=== PATIENT | female | born 1950 | race Native Hawaiian/Other Pacific Islander ===

== ENCOUNTER 2021-05-23 09:22 | Outpatient (CLI) | payer BC ==
[2021-05-23 10:00] LABS: PLATELET COUNT 282 K/uL (152-353)
[2021-05-23 10:22] LABS: POTASSIUM 3.7 mmol/L (3.6-5.2)
== END 2021-05-23 20:35 | disposition home or self-care (01) ==
LOC: LABW 09:22
PROVIDERS: ATTEND Internal Medicine
DX: N39.0 Urinary tract infection, site not specified (principal); E11.22 Type 2 diabetes mellitus with diabetic chronic kidney disease; I10 Essential (primary) hypertension
CPT/HCPCS: 36415; 80053; 81000; 82024; 82043; 82088; 82533; 82570; 83036; 83735; 83835; 84100; 84155; 84244; 84436; 84439; 84443; 85027; 87086; 87088

== ENCOUNTER 2021-05-29 14:33 | Outpatient (CLI) | payer BC | END 2021-05-29 22:45 | disposition home or self-care (01) | LOC: LAB 14:33 | PROVIDERS: ATTEND Internal Medicine | DX: N39.0 Urinary tract infection, site not specified (principal) | CPT/HCPCS: 81000 ==

== ENCOUNTER 2022-04-20 09:46 | Outpatient (CLI) | payer BC ==
[2022-04-20 10:23] LABS: PLATELET COUNT 305 K/uL (152-353)
[2022-04-20 10:36] LABS: POTASSIUM 3.7 mmol/L (3.6-5.2)
== END 2022-04-20 19:21 | disposition home or self-care (01) ==
LOC: LABW 09:46
PROVIDERS: ATTEND Internal Medicine
DX: E11.22 Type 2 diabetes mellitus with diabetic chronic kidney disease (principal); N18.9 Chronic kidney disease, unspecified
CPT/HCPCS: 36415; 80053; 81002; 82043; 82570; 83036; 83735; 84100; 84156; 84439; 84443; 85027

== ENCOUNTER 2023-01-07 09:25 | Outpatient (CLI) | payer BC ==
[2023-01-07 10:00] LABS: PLATELET COUNT 299 K/uL (152-353)
[2023-01-07 10:29] LABS: POTASSIUM 3.4 mmol/L (3.6-5.2)
== END 2023-01-07 19:02 | disposition home or self-care (01) ==
LOC: LABW 09:25
PROVIDERS: ATTEND Internal Medicine
DX: E11.22 Type 2 diabetes mellitus with diabetic chronic kidney disease (principal); N18.9 Chronic kidney disease, unspecified
CPT/HCPCS: 36415; 80053; 81002; 82043; 82570; 83036; 83735; 84100; 84156; 84439; 84443; 85027